=== PATIENT | male | born 1945 | race Caucasian/White ===

== ENCOUNTER → 2017-01-07 | Outpatient (CLI) | payer MEDICARE ==
--- NOTE | 2017-01-07 14:12 | RAD ---
Indication history of lung cancer. Follow-up. Axial noncontrast images were obtained through the chest and are compared to a study October 24, 2011. No acute or significant finding is seen in the upper abdomen. Gastric lap band is noted. There is some coronary artery calcification. Significant hilar or mediastinal adenopathy is not seen. There is a parenchymal opacity in the right upper lobe measuring approximately 8 mm in greatest dimension, image 20 series 2. This may reflect scar. Neoplastic disease is not entirely excluded. Follow-up imaging along the lines of the Fleischner criteria should be considered. There is an rectangular opacity in the right lower lobe measuring approximately 3.3 x 1 cm, image 42. This probably reflects some parenchymal scarring. Neoplastic disease is felt unlikely but cannot be entirely excluded. A focus of pneumonia accounting for the appearance is not excluded. Definite evidence of tumor recurrence or a definite acute finding in the chest is not seen. IMPRESSION: Parenchymal opacities in the right lung probably reflecting scar. Follow-up imaging, along the lines of the Fleischner criteria, should be considered. A definite acute finding is not seen. Definite evidence of tumor recurrence is not seen. PQRS Compliance Statement: One or more of the following individualized dose reduction techniques were utilized for this examination: 1. Automated exposure control 2. Adjustment of the mA and/or kV according to patient size 3. Use of iterative reconstruction technique
== END | disposition home or self-care (01) ==
LOC: CT 13:02
PROVIDERS: ATTEND Family Medicine
DX: C34.91 Malignant neoplasm of unspecified part of right bronchus or lung (principal)
CPT/HCPCS: 71250

== ENCOUNTER → 2017-10-18 | Outpatient (CLI) | payer MEDICARE ==
--- NOTE | 2017-10-18 18:10 | RAD ---
Limited abdomen ultrasound HISTORY: Bariatric laparoscopic gastric banding 2 years ago with pain at the port site at the left upper quadrant abdominal wall FINDINGS: Assessment of the left upper quadrant abdominal wall at the reported area of pain at the port site demonstrates shadowing from the port however there is no surrounding fluid, fluid collection, edema or mass documented. IMPRESSION: Negative exam. Electronically signed by: Hemanth Diallo MD (10/18/2017 6:06 PM) [facility]
== END | disposition home or self-care (01) ==
LOC: US 16:51
PROVIDERS: ATTEND Family Medicine
DX: R19.32 Left upper quadrant abdominal rigidity (principal)
CPT/HCPCS: 76705

== ENCOUNTER 2018-03-31 17:29 | Inpatient (IN) | payer MEDICARE ==
[~2018-03-31 17:29] MED LIST: DIAZ10TA PO; HEPARIN PF for SUB-Q USE 5,000 UNIT/0.5 ML VIAL. SQ SCH; INSU100I13 SQ; INSU100I17 SQ; LEVO500T59 PO; PRAV40TA2 PO; SILD100T PO
[2018-03-31 18:11] VITALS: BP 137/83
--- NOTE | 2018-03-31 18:13 | NUR ---
The patient, AUDRA RICHMOND, 72 y/o, M admitted by SHANIQUA QUINTERO MD, was given written information regarding hospital policies, unit procedures and contact persons. Patient admitted to room [address] Quintero's office and arrived at approx. 1745 via ambulation accompanied by . Valuables were checked and left in room with patient. Vital signs assessed and patient oriented to the room.
[2018-03-31] MEDS ORDERED: ZOLPIDEM 5 MG TABLET. PO PRN (18:15)
[2018-03-31] MEDS ORDERED: INSULIN GLARGINE 300 UNITS/3 ML INSULN.PEN. SQ SCH (21:00)
[2018-03-31] MEDS ORDERED: INSULIN ASPART SQ SCH (21:00)
[2018-03-31 21:19] LABS: BASO # 0.1 x10^3/uL (0.0-0.2); BASO % 1 % (0-3); EOS # 0.1 x10^3/uL (0.0-0.7); EOS % 2 % (0-3); HEMATOCRIT 36.7 % (39.0-53.0); LYMPH # 2.1 x10^3/uL (1.0-4.8); LYMPH % 26 % (24-48); MEAN CORPUSCULAR HEMOGLOBIN 31 pg (25-35); MEAN CORPUSCULAR HGB CONC 33 g/dL (31-37); MEAN CORPUSCULAR VOLUME 96 fL (79-100); MONO # 0.7 x10^3/uL (0.0-1.1); MONO % 9 % (0-9); NEUT % 63 % (31-73); PLATELET COUNT 139 x10^3/uL (140-400); RED BLOOD COUNT 3.83 x10^6/uL (4.30-5.70); RED CELL DISTRIBUTION WIDTH 14.4 % (11.5-14.5); WHITE BLOOD COUNT 8.1 x10^3/uL (4.0-11.0)
[2018-03-31 21:44] LABS: ALBUMIN 2.9 g/dL (3.4-5.0); ALBUMIN/GLOBULIN RATIO 0.7 (1.0-1.7); CALCIUM 8.8 mg/dL (8.5-10.1); GFR 73.7; POTASSIUM 3.5 mmol/L (3.5-5.1); TOTAL BILIRUBIN 6.4 mg/dL (0.2-1.0); TOTAL PROTEIN 7.1 g/dL (6.4-8.2)
[2018-03-31] MEDS: IV NORMAL SALINE 1,000ML 1,000 ML IV SCH (21:44)
[2018-03-31] MEDS ORDERED: METF500T9 PO (21:49)
[2018-03-31] MEDS ORDERED: DEXTROSE 50% 25 GM / 50ML DISP.SYRIN. IV PRN (22:00)
[2018-03-31] MEDS: diazePAM 5 MG TABLET PO SCH (22:24)
[2018-03-31 22:32] LABS: PLT ESTIMATE DECREASED (ADEQUATE)
[2018-03-31 23:17] LABS: BILIRUBIN,URINE LARGE (NEG); CLARITY,URINE HAZY; COLOR,URINE BROWN; GLUCOSE,URINE 250 mg/dL (NEG)
[2018-03-31 23:18] LABS: BACTERIA,URINE 0 /HPF (0-FEW); NITRITE,URINE NEG (NEG); RBC,URINE 0 /HPF (0-2); SQUAMOUS EPITHELIAL CELL,UR OCC /LPF; UROBILINOGEN,URINE 1 mg/dL (0.2 mg/dL); WBC,URINE OCC /HPF (0-4)
[2018-03-31 23:59] VITALS: BP 116/57
[2018-04-01] MEDS: IV NORMAL SALINE 1,000ML 1,000 ML IV SCH (05:02)
[2018-04-01 05:59] VITALS: BP 143/75
--- NOTE | 2018-04-01 06:35 | EKG ---
[address] [address] Test Date: 2018-04-01 Test Time: 05:05:19 Pat Name: AUDRA RICHMOND Department: Room: 123 A Gender: M Social Staff Worker: : 1945 Requested By: SHANIQUA QUINTERO Order Number: [id number] Reading MD: Measurements Intervals [place] Rate: 70 P: -30 GA: 246 QRS: 7 QRSD: 80 T: 20 QT: 394 QTc: 428 Interpretive Statements SINUS RHYTHM PROLONGED GA INTERVAL QRS(T) CONTOUR ABNORMALITY CONSIDER ANTEROSEPTAL MYOCARDIAL DAMAGE ABNORMAL ECG RI6.01 No previous ECG available for comparison
[2018-04-01 06:46] LABS: BASO # 0.1 x10^3/uL (0.0-0.2); BASO % 1 % (0-3); EOS # 0.1 x10^3/uL (0.0-0.7); EOS % 2 % (0-3); HEMATOCRIT 33.3 % (39.0-53.0); HEMOGLOBIN 11.3 g/dL (13.0-17.5); LYMPH # 1.6 x10^3/uL (1.0-4.8); LYMPH % 29 % (24-48); MEAN CORPUSCULAR HEMOGLOBIN 32 pg (25-35); MEAN CORPUSCULAR HGB CONC 34 g/dL (31-37); MEAN CORPUSCULAR VOLUME 93 fL (79-100); MONO # 0.6 x10^3/uL (0.0-1.1); MONO % 10 % (0-9); NEUT % 57 % (31-73); PLATELET COUNT 126 x10^3/uL (140-400); RED BLOOD COUNT 3.58 x10^6/uL (4.30-5.70); RED CELL DISTRIBUTION WIDTH 13.8 % (11.5-14.5); WHITE BLOOD COUNT 5.3 x10^3/uL (4.0-11.0)
[2018-04-01 07:17] LABS: ALBUMIN 2.5 g/dL (3.4-5.0); CALCIUM 8.3 mg/dL (8.5-10.1); CREATININE 0.9 mg/dL (0.7-1.3); DIRECT BILIRUBIN 5.1 mg/dL (0.0-0.2); GFR 83.2; POTASSIUM 3.3 mmol/L (3.5-5.1); TOTAL PROTEIN 6.7 g/dL (6.4-8.2)
[2018-04-01] MEDS ORDERED: INSULIN LISPRO 300 UNITS/3 ML INSULN.PEN. SQ SCH ×3 (08:00→17:00)
[2018-04-01] MEDS: diazePAM 5 MG TABLET PO SCH (08:15)
[2018-04-01] MEDS: INSULIN LISPRO 300 UNITS/3 ML INSULN.PEN. SQ SCH ×2 (08:20→12:26)
[2018-04-01] MEDS ORDERED: LEVOFLOXACIN PO SCH (09:00)
[2018-04-01] MEDS ORDERED: ELECTROLYTE (NON-ICU) PROTOCOL MC PRN (09:15)
[2018-04-01] MEDS ORDERED: POTASSIUM CHLORIDE 20 MEQ TABLET.ER. PO ONE (10:00)
--- NOTE | 2018-04-01 10:17 | RAD ---
Indication:DIFFUSE ABDOMINAL PAIN, history of LUNG CA TECHNIQUE: CT abdomen and pelvis without IV contrast with multiplanar reformats. COMPARISON: None FINDINGS: Limited evaluation of solid abdominal organs due to lack of IV contrast. Heart is normal in size. Stable 2 nodules in the right middle lobe, the largest measuring 7 mm in compared to previous study from 02/10/2018. Stable nodular opacity in the right lung base (series 2 image 16) measuring 5 mm. Liver is normal in morphology. Spleen is mildly enlarged measuring 14 cm with calcified granulomas. Status post cholecystectomy. Noncontrast appearance of the pancreas is within normal limits. Multiple punctate calcifications. Gastric lap band noted. No nephrolithiasis or hydronephrosis. No retroperitoneal or pelvic adenopathy. No bowel obstruction. Normal appendix. Urinary bladder demonstrates no radiopaque stones. Prostate and seminal vesicles show no mass lesion. No suspicious bony lesion. IMPRESSION: 1. Stable right lung base nodules are compatible previous study from 02/10/2018. Follow-up CT chest in 6 months recommended. 2. No acute findings in the abdomen or pelvis. 3. Punctate calcifications in the pancreas may suggest stigmata of chronic pancreatitis. Electronically signed by: Jose F Gibson DO (04/01/2018 10:14 AM) [facility]
[2018-04-01 11:31] VITALS: BP 123/60
--- NOTE | 2018-04-01 14:05 | NUR ---
Discharge Note: AUDRA RICHMOND [address] Discharge instructions and discharge home medications reviewed with PATIENT and a copy given. All questions have been answered and understanding verbalized. The following instructions and handouts were given: MEDICATIONS, FOLLOW UP INSTRUCTIONS, AND EDUCATIONAL HANDOUTS GIVEN. Discontinued lines and drains: PERIPHERAL IV DISCONTINUED WITH NO COMPLICATIONS. Patient discharged to HOME with SPOUSE via PRIVATE VEHICLE.
--- NOTE | 2018-04-01 14:09 | DS ---
DATE OF DISCHARGE: 04/01/2018 HOSPITAL COURSE: The patient is a 72-year-old male with history of lung cancer, came in through the office. He was jaundiced. The patient was feeling weak and somewhat lethargic as well as being extremely tired. As a result of this, the patient was admitted for observation for his elevated bilirubin. He had had labs done as an outpatient; however, began to have somewhat change in mental status and his elevated blood sugars were also complication. The patient was markedly dehydrated. He came in and received IV fluids. Basic labs, CT scan was unremarkable showing no signs of metastasis to the liver from his lung cancer. His liver enzymes were elevated. AST 75, ALT 120, alkaline phosphatase 348. His total bilirubin was 6.4 and direct bilirubin was 5.1. The patient also had a low albumin of 2.5. Potassium was low at 3.3. D-dimer was unremarkable and the urine of course showed large bilirubin. Images of the CT scan of the abdomen and pelvis demonstrated no parenchymal problems with the liver itself; however, there was stigmata of chronic pancreatitis, although his amylase and lipase was unremarkable. Chest x-ray was still pending at time of discharge as the patient wanted to be discharged home to be followed up with Dr. Gibson, noted GI specialist for further evaluation of his elevated liver enzymes. Other labs are still pending. Due to his hepatitis screen is still pending and other tests, the patient had been feeling very lethargic, although after fluid hydration and like, he has felt much better. IMPRESSION: Hyperbilirubinemia, encephalopathy with history of lung cancer, hypokalemia, [id number] protein malnutrition, abnormal liver enzymes, elevated and type 2 diabetes, poorly controlled; morbid obesity, BMI greater than 40. DISCHARGE INSTRUCTIONS: The patient will be discharged home, followed up. Regular diet, decreased activity, and minimize the use of any medications that might go through the liver until he sees Dr. Gibosn, noted trust and estates attorney. See EMRAD. Decreased activity. SHANIQUA QUINTERO MD DR: DOMINGA/anthony JOB#: [id number] / [id number]
[2018-04-01] MEDS ORDERED: HEPARIN PF for SUB-Q USE 5,000 UNIT/0.5 ML VIAL. SQ SCH (16:00)
--- NOTE | 2018-04-01 16:06 | RAD ---
EXAM: Chest, 2 views. HISTORY: Lung cancer. Shortness of breath. COMPARISON: CT dated 02/10/2018 FINDINGS: Frontal and lateral views of the chest are obtained. There is a 0.3 cm masslike opacity within the superior lateral right lower lobe. There is focal opacity within the left mid thorax likely due to pleural parenchymal scarring. There is an overlying left seventh rib defect and there is left hemithorax volume loss. There is no pleural effusion or pneumothorax. There is a gastric lap band. There are cholecystectomy clips. IMPRESSION: 1. 3.3 cm masslike opacity within the right superior right lower lobe. This is fairly stable compared to the prior CT, allowing for differences in imaging modality. This may be infectious, inflammatory or neoplastic. 2. Evidence of prior partial left lung resection with associated mid and lower thorax pleural parenchymal scarring and volume loss. 3. Note is made that a nodular opacity within the right lung apex on the prior CT is not well seen radiographically. Electronically signed by: Venita Martinez MD (04/01/2018 4:02 PM) [facility]
== END 2018-04-01 14:00 | disposition home or self-care (01) | DRG 441 ==
LOC: 1 SOUTH 17:29
PROVIDERS: ADMIT Family Medicine; ATTEND Family Medicine
PROC: 5A09357 Assistance with Respiratory Ventilation, Less than 24 Consecutive Hours, Continuous Positive Airway Pressure (ICD-10-PCS; principal; 2018-03-31)
DX: E80.6 Other disorders of bilirubin metabolism (principal); G93.40 Encephalopathy, unspecified; E44.0 Moderate protein-calorie malnutrition; Z68.41 Body mass index [BMI] 40.0-44.9, adult; K77 Liver disorders in diseases classified elsewhere; K86.1 Other chronic pancreatitis; Q44.6 Cystic disease of liver; E11.65 Type 2 diabetes mellitus with hyperglycemia; I25.10 Atherosclerotic heart disease of native coronary artery without angina pectoris; E66.01 Morbid (severe) obesity due to excess calories; E87.6 Hypokalemia; E86.0 Dehydration; Z85.118 Personal history of other malignant neoplasm of bronchus and lung; Z87.01 Personal history of pneumonia (recurrent); Z88.8 Allergy status to other drugs, medicaments and biological substances
CPT/HCPCS: 36415; 71046; 74176; 80048; 80053; 80076; 81001; 82150; 82947; 83690; 85025; 85379; 86705; 86709; 86803; 87340; 93005; 94640; J1815; J7030

== ENCOUNTER 2018-10-01 12:12 | Inpatient (IN) | payer MEDICARE ==
[~2018-10-01] VITALS: Ht 172.7 cm; Wt 96.8 kg
[~2018-10-01 12:12] MED LIST changes: -HEPARIN PF for SUB-Q USE 5,000 UNIT/0.5 ML VIAL. SQ SCH; +METF500T9 PO
[2018-10-01] MEDS ORDERED: DEXTROSE 50% 25 GM / 50ML DISP.SYRIN. IV ONE (12:30)
[2018-10-01 12:44] LABS: BASO # 0.1 x10^3/uL (0.0-0.2); BASO % 1 % (0-3); EOS # 0.1 x10^3/uL (0.0-0.7); EOS % 1 % (0-3); HEMOGLOBIN 9.7 g/dL (13.0-17.5); LYMPH # 1.2 x10^3/uL (1.0-4.8); LYMPH % 10 % (24-48); MEAN CORPUSCULAR HEMOGLOBIN 31 pg (25-35); MEAN CORPUSCULAR HGB CONC 32 g/dL (31-37); MEAN CORPUSCULAR VOLUME 97 fL (79-100); MONO % 8 % (0-9); NEUT # 9.8 x10^3uL (1.8-7.7); NEUT % 81 % (31-73); PLATELET COUNT 252 x10^3/uL (140-400); RED BLOOD COUNT 3.11 x10^6/uL (4.30-5.70); RED CELL DISTRIBUTION WIDTH 15.8 % (11.5-14.5); WHITE BLOOD COUNT 12.2 x10^3/uL (4.0-11.0)
[2018-10-01 13:07] LABS: ALBUMIN 2.2 g/dL (3.4-5.0); ALBUMIN/GLOBULIN RATIO 0.5 (1.0-1.7); CALCIUM 8.1 mg/dL (8.5-10.1); CREATININE 0.7 mg/dL (0.7-1.3); GFR 110.9; MAGNESIUM 1.7 mg/dL (1.8-2.4); TOTAL BILIRUBIN 0.3 mg/dL (0.2-1.0); TOTAL PROTEIN 6.6 g/dL (6.4-8.2)
[2018-10-01 13:08] LABS: POTASSIUM 2.6 mmol/L (3.5-5.1)
[2018-10-01] MEDS ORDERED: POTASSIUM CHLORIDE 20MEQ 100 ML IV ONE (13:15)
--- NOTE | 2018-10-01 13:21 | PHYS DOC ---
Past History Past Medical History: Cancer, Diabetes, Hypertension, Other Past Surgical History: Other Smoking: Non-smoker Alcohol Use: None Drug Use: None Adult General Chief Complaint Chief Complaint: HYPOGLYCEMIA HPI HPI Patient is a 73 year old male with history of Whipple procedure on September 19 and diabetes mellitus brought in by EMS because of hypoglycemia. Patient's states he was discharged from Hospital one week ago and had 1 episodes of hypoglycemia with blood sugar of 46 two nights ago and had adjustment of doses of insulin and metformin and increased his food intake. Patient states he was okay this morning at around 9:30 but later on had diaphoresis and very wide open eyes and confusion and she called 911 to report that he had blood sugar of 25 and had 1 mg glucagon IM. Patient was alert and oriented times arrival to ER with blood sugar of 61 and denies focal neuro deficit, chest pain, shortness of breath, fever and chills. Review of Systems Review of Systems Constitutional: Denies fever or chills [] Eyes: Denies change in visual acuity, redness, or eye pain [] HENT: Denies nasal congestion or sore throat [] Respiratory: Denies cough or shortness of breath [] Cardiovascular: No additional information not addressed in HPI [] GI: Denies abdominal pain, nausea, vomiting, bloody stools or diarrhea [] : Denies dysuria or hematuria [] Musculoskeletal: Denies back pain or joint pain [] Integument: Denies rash or skin lesions [] Neurologic: Denies headache, focal weakness or sensory changes [] Endocrine: Denies polyuria or polydipsia [] All other systems were reviewed and found to be within normal limits, except as documented in this note. Current Medications Current Medications Current Medications Medications (Trade) Dose Ordered Sig/Nabila Start Time Stop Time Status Last Admin Dose Admin Dextrose 12.5 gm 1X ONCE 10/01/18 12:30 10/01/18 12:34 DC 10/01/18 12:30 12.5 GM Allergies Allergies Allergies Coded Allergies Type Severity Reaction Last Updated Verified No Known Drug Allergies 02/10/18 No Physical Exam Physical Exam Constitutional: Well developed, well nourished, no acute distress, non-toxic appearance. [] HENT: Normocephalic, atraumatic, oropharynx moist, no oral exudates, nose normal. [] Eyes: PERRLA, EOMI, conjunctiva normal, no discharge. [] Neck: Normal range of motion, no tenderness, supple, no stridor. [] Cardiovascular:Heart rate regular rhythm, no murmur [] Lungs & Thorax: Bilateral breath sounds clear to auscultation [] Abdomen: upper abdominal clean surgical wound of Whipple surgery, bowel sounds normal, soft, no tenderness, no masses, no pulsatile masses. [] Skin: Warm, dry, no erythema, no rash. [] Back: No tenderness, no CVA tenderness. [] Extremities: No tenderness, no cyanosis, no clubbing, ROM intact, no edema. [] Neurologic: Alert and oriented X 3, normal motor function, normal sensory function, no focal deficits noted. [] Psychologic: Affect normal, judgement normal, mood normal. [] Current Patient Data Vital Signs Vital Signs Date Time Temp Pulse Resp B/P (MAP) Pulse Ox O2 Delivery O2 Flow Rate FiO2 10/01/18 12:37 71 18 97 Room Air Lab Results Laboratory Tests Test 10/01/18 12:27 10/01/18 13:00 White Blood Count 12.2 x10^3/uL (4.0-11.0) H Red Blood Count 3.11 x10^6/uL (4.30-5.70) L Hemoglobin 9.7 g/dL (13.0-17.5) L Hematocrit 30.0 % (39.0-53.0) L Mean Corpuscular Volume 97 fL (79-100) Mean Corpuscular Hemoglobin 31 pg (25-35) Mean Corpuscular Hemoglobin Concent 32 g/dL (31-37) Red Cell Distribution Width 15.8 % (11.5-14.5) H Platelet Count 252 x10^3/uL (140-400) Neutrophils (%) (Auto) 81 % (31-73) H Lymphocytes (%) (Auto) 10 % (24-48) L Monocytes (%) (Auto) 8 % (0-9) Eosinophils (%) (Auto) 1 % (0-3) Basophils (%) (Auto) 1 % (0-3) Neutrophils # (Auto) 9.8 x10^3uL (1.8-7.7) H Lymphocytes # (Auto) 1.2 x10^3/uL (1.0-4.8) Monocytes # (Auto) 1.0 x10^3/uL (0.0-1.1) Eosinophils # (Auto) 0.1 x10^3/uL (0.0-0.7) Basophils # (Auto) 0.1 x10^3/uL (0.0-0.2) Prothrombin Time 10.9 SEC (9.4-11.4) Prothrombin Time INR 1.1 (0.9-1.1) PTT 28 SEC (23-33) D-Dimer (Marcie) Pending Sodium Level 142 mmol/L (136-145) Potassium Level 2.6 mmol/L (3.5-5.1) *L Chloride Level 102 mmol/L (98-107) Carbon Dioxide Level 31 mmol/L (21-32) Anion Gap 9 (6-14) Blood Urea Nitrogen 14 mg/dL (8-26) Creatinine 0.7 mg/dL (0.7-1.3) Estimated GFR (Cockcroft-Gault) 110.9 BUN/Creatinine Ratio 20 (6-20) Glucose Level 141 mg/dL (70-99) H Lactic Acid Level 1.1 mmol/L (0.4-2.0) Calcium Level 8.1 mg/dL (8.5-10.1) L Magnesium Level 1.7 mg/dL (1.8-2.4) L Total Bilirubin 0.3 mg/dL (0.2-1.0) Aspartate Amino Transferase (AST) 28 U/L (15-37) Alanine Aminotransferase (ALT) 33 U/L (16-63) Alkaline Phosphatase 84 U/L (46-116) Creatine Kinase 28 U/L (39-308) L Troponin I Quantitative < 0.017 ng/mL (0-0.055) SV-Aws-Q-Type Natriuretic Peptide 369 pg/mL (0-124) H Total Protein 6.6 g/dL (6.4-8.2) Albumin 2.2 g/dL (3.4-5.0) L Albumin/Globulin Ratio 0.5 (1.0-1.7) L Lipase 32 U/L (73-393) L Glucose (Fingerstick) 146 mg/dL (70-99) H EKG EKG EKG interpreted by me. EKG at 12:30 T showed normal sinus rhythm at rate of 66, prolonged SC interval at 230, prolonged QT at 458, left greer axis, poor R-wave progress in anteroseptal leads, no acute ST and T-wave abnormalities,[] Radiology/Procedures Radiology/Procedures [] Course & Med Decision Making Course & Med Decision Making Pertinent Labs and Imaging studies reviewed. (See chart for details) Evaluation of patient in ER showed 73-year-old male patient with history of recent Whipple procedure and episode of hypoglycemia and blood sugar of 25 brought in by EMS. Patient had blood sugar of 61 at arrival to ER and treated with half of amp of D50 with increase of blood sugar to 141. Patient had potassium of 2.6 and magnesium of 1.7. Dr. Hammonds accepted admission at 1314. Patient and his informed about test result and plan of care and admission. Dragon Disclaimer Dragon Disclaimer This electronic medical record was generated, in whole or in part, using a voice recognition dictation system. Departure Departure: Impression: Primary Impression: Hypoglycemia Additional Impressions: Hypokalemia Altered level of consciousness Anemia Hypomagnesemia Disposition: 09 ADMITTED INPATIENT (@1315) Admitting Physician: Shaniqua Hammonds (accepted admission at 1314) Condition: IMPROVED Referrals: SHANIQUA HAMMONDS MD (PCP) Critical Care Time Critical care time was 60 minutes exclusive of procedures. Problem Qualifiers DYANA ESTEVES MD Oct 01, 2018 13:21
[2018-10-01] MEDS ORDERED: MAGNESIUM OXIDE 400 MG TABLET PO ONE (13:30)
[2018-10-01] MEDS ORDERED: METF500T9 PO (13:53)
[2018-10-01] MEDS ORDERED: TRAM50TA PO (13:53)
[2018-10-01] MEDS ORDERED: METO10TA81 PO (13:53)
[2018-10-01] MEDS ORDERED: ONDA8TAB9 PO (13:53)
[2018-10-01] MEDS ORDERED: SENN-37 PO (13:53)
[2018-10-01] MEDS ORDERED: METO25TA4 PO (13:53)
[2018-10-01] MEDS ORDERED: POLY17PO5 PO (13:53)
[2018-10-01] MEDS ORDERED: ACET160S PO (13:53)
[2018-10-01 14:35] LABS: BACTERIA,URINE 0 /HPF (0-FEW); BILIRUBIN,URINE NEG (NEG); CLARITY,URINE CLEAR; COLOR,URINE AMBER; GLUCOSE,URINE 250 mg/dL (NEG); NITRITE,URINE NEG (NEG); RBC,URINE 0 /HPF (0-2); SQUAMOUS EPITHELIAL CELL,UR OCC /LPF; UROBILINOGEN,URINE 8 mg/dL (0.2 mg/dL); WBC,URINE 0 /HPF (0-4)
--- NOTE | 2018-10-01 14:46 | EKG ---
[address] [address] Test Date: 2018-10-01 Test Time: 12:33:01 Pat Name: AUDRA RICHMOND Department: Room: 123 A Gender: M Telephone Order Clerk Room Service: : 1945 Requested By: DYANA ESTEVES Order Number: [id number] Reading MD: Billy Mcdaniel Measurements Intervals [place] Rate: 66 P: -5 UT: 230 QRS: -18 QRSD: 90 T: 52 QT: 458 QTc: 482 Interpretive Statements SINUS RHYTHM PROLONGED UT INTERVAL LEFTWARD AXIS QRS(T) CONTOUR ABNORMALITY CONSIDER ANTEROSEPTAL MYOCARDIAL DAMAGE PROLONGED QT Electronically Signed On 10-07-2018 10:07:10 [employer] by Billy Mcdaniel
[2018-10-01 14:55] VITALS: BP 143/80
[2018-10-01] MEDS ORDERED: ELECTROLYTE (NON-ICU) PROTOCOL MC PRN (18:45)
[2018-10-01] MEDS ORDERED: ACETAMINOPHEN 325 MG TABLET PO PRN (18:45)
[2018-10-01] MEDS ORDERED: DEXTROSE 50% 25 GM / 50ML DISP.SYRIN. IV PRN (19:15)
[2018-10-01 20:20] VITALS: BP 99/51
[2018-10-01] MEDS: diazePAM 5 MG TABLET PO SCH (20:22)
[2018-10-01] MEDS: SENNOSIDES/DOCUSATE 8.6/50MG TABLET. PO SCH (20:22)
[2018-10-01] MEDS: METOPROLOL TART IMMED RELEASE 25 MG TABLET PO SCH (20:22)
[2018-10-01] MEDS: METOCLOPRAMIDE 10 MG TABLET PO SCH (20:22)
[2018-10-01] MEDS: ONDANSETRON ODT 4 MG TAB.RAPDIS PO SCH (20:26)
[2018-10-02] MEDS: traMADol 50 MG TABLET PO PRN ×2 (00:37→09:56)
[2018-10-02 05:35] VITALS: BP 131/62
[2018-10-02] MEDS: ONDANSETRON ODT 4 MG TAB.RAPDIS PO SCH (06:00)
[2018-10-02] MEDS ORDERED: INSULIN LISPRO 300 UNITS/3 ML INSULN.PEN. SQ SCH (08:00)
[2018-10-02] MEDS ORDERED: POLYETHYLENE GLYCOL 3350 17 GM PACKET. PO SCH (09:00)
[2018-10-02] MEDS: METOCLOPRAMIDE 10 MG TABLET PO SCH (09:04)
[2018-10-02] MEDS: METOPROLOL TART IMMED RELEASE 25 MG TABLET PO SCH (09:05)
[2018-10-02] MEDS: diazePAM 5 MG TABLET PO SCH (09:06)
[2018-10-02 09:29] LABS: CALCIUM 8.2 mg/dL (8.5-10.1); CREATININE 0.8 mg/dL (0.7-1.3); POTASSIUM 3.2 mmol/L (3.5-5.1)
[2018-10-02] MEDS ORDERED: POTA20TA4 PO (09:33)
--- NOTE | 2018-10-02 09:35 | DISCH ---
DISCHARGE INSTRUCTIONS-DC Condition on Discharge Condition on Discharge: Stable Checks after Discharge Checks after discharge: Check blood sugar, ac/hs Additional Comment: use sliding scale as given to you by the nurses SHANIQUA QUINTERO MD Oct 02, 2018 09:35
[2018-10-02] MEDS: SENNOSIDES/DOCUSATE 8.6/50MG TABLET. PO SCH (09:57)
[2018-10-02] MEDS ORDERED: POTASSIUM CHLORIDE 20 MEQ TABLET.ER. PO SCH (10:00)
[2018-10-02 10:31] VITALS: BP 124/78
--- NOTE | 2018-10-02 18:46 | HP ---
ADMIT DATE: 10/01/2018 HISTORY OF PRESENT ILLNESS: A 73-year-old male, recent Whipple procedure on 09/19/2018, possible pancreatic cancer, diabetes mellitus, EMS brought him in through the ER for hypoglycemia. Apparently, he has been taking insulin and not eating very much because of his procedure. His sugar has gone down and as low as 25. He was given glucagon to get his sugar back up. He was admitted for observation and make sure the sugars stayed up. The patient had as noted been taking his oral hypoglycemics as well as insulin and not eating. PAST MEDICAL HISTORY: As indicated. The patient has a history of lung cancer. He has had a tonsillectomy, adenoidectomy, hearing problems, hypercholesterolemia, right lower lung active pneumonia, lobectomy. The patient has had sleep apnea, uses CPAP, pancreatic cancer, Whipple on 09/19/2018 at , cholecystectomy, lap band procedure in 2007, still in place, obesity, diabetes and anxiety. He has had chemotherapy in 07/2018 at [place], influenza, pneumococcal vaccinations are up-to-date; kidney cancer and multiple myeloma family history thereof, adverse reaction to Lipitor, Soma and Crestor. HOME MEDICATIONS: That he was taking or probably should not have been taking include tramadol 50 mg a day, metoprolol 25, diazepam, potassium chloride, Reglan 10 mg a day. He had been taking NovoLog FlexPen as well as Lantus and metformin that he has also been taking Viagra 1 p.r.n. and docusate sodium. SOCIAL HISTORY: The patient is a former smoker, otherwise denies any alcohol presently, lives at home, he is a full code. REVIEW OF SYSTEMS: The patient just general weakness, fatigue, diaphoresis. Denies chest pain. Very minimal abdominal discomfort secondary to his surgery. PHYSICAL EXAMINATION: GENERAL: A pleasant white male, looking stated age. VITAL SIGNS: Blood pressure 120/60, respirations 16, pulse 67, afebrile, 99% oxygen saturation, weight 213. HEENT: Head: Atraumatic, normocephalic. Eyes: PERRLA without jaundice. The mouth and throat were normal. NECK: Supple without JVD, carotid bruits or thyromegaly. LUNGS: Diminished throughout, but clear. CARDIOVASCULAR: Regular sinus rhythm, S1, S2, without murmur, rub, thrill, or extra heart sounds. ABDOMEN: Soft, nontender, no rebounding or guarding. Positive bowel sounds, no hepatosplenomegaly was noted. The patient's surgical wounds seemed to be healing up quite well, slightly distended, slight tenderness, but no rebounding or guarding noted. EXTREMITIES: No clubbing, cyanosis, nr edema. NEUROLOGIC: The patient was alert and oriented x 3. SHANIQUA QUINTERO MD DR: DOMINGA/anthony JOB#: [id number] / [id number]
== END 2018-10-02 11:10 | disposition home health service (06) | DRG 638 ==
LOC: ER 12:12 → 1 SOUTH 13:20
PROVIDERS: ADMIT Family Medicine; ATTEND Family Medicine
PROC: 5A09357 Assistance with Respiratory Ventilation, Less than 24 Consecutive Hours, Continuous Positive Airway Pressure (ICD-10-PCS; principal; 2018-10-01)
DX: E11.649 Type 2 diabetes mellitus with hypoglycemia without coma (principal); E44.0 Moderate protein-calorie malnutrition; G92 Toxic encephalopathy; D64.9 Anemia, unspecified; E78.00 Pure hypercholesterolemia, unspecified; E83.42 Hypomagnesemia; E87.6 Hypokalemia; E66.9 Obesity, unspecified; F41.9 Anxiety disorder, unspecified; G47.30 Sleep apnea, unspecified; I10 Essential (primary) hypertension; Z79.899 Other long term (current) drug therapy; Z85.07 Personal history of malignant neoplasm of pancreas; Z85.118 Personal history of other malignant neoplasm of bronchus and lung; Z85.528 Personal history of other malignant neoplasm of kidney; Z87.891 Personal history of nicotine dependence; Z92.21 Personal history of antineoplastic chemotherapy; Z90.411 Acquired partial absence of pancreas; Z87.01 Personal history of pneumonia (recurrent); Z68.32 Body mass index [BMI] 32.0-32.9, adult; Z90.49 Acquired absence of other specified parts of digestive tract
CPT/HCPCS: 36415; 80048; 80053; 81001; 82550; 82947; 83605; 83690; 83735; 83880; 84484; 85025; 85379; 85610; 85730; 87040; 93005; 96365; 96375; J1815; J3480; J8597; 99291-25

== ENCOUNTER 2018-10-23 08:30 | Inpatient (IN) | payer MEDICARE ==
[~2018-10-23] VITALS: Ht 172.7 cm; Wt 87.2 kg
[~2018-10-23 08:30] MED LIST changes: +ACET160S PO; +METO10TA81 PO; +METO25TA4 PO; +ONDA8TAB9 PO; +POLY17PO5 PO; +POTA20TA4 PO; +SENN-37 PO; +TRAM50TA PO
[2018-10-23 08:37] VITALS: BP 113/73
[2018-10-23] MEDS ORDERED: traMADol 50 MG TABLET PO PRN (09:15)
[2018-10-23] MEDS ORDERED: ACETAMINOPHEN 325 MG TABLET PO PRN (09:15)
[2018-10-23] MEDS ORDERED: METOPROLOL TART IMMED RELEASE 25 MG TABLET PO SCH (09:30)
[2018-10-23] MEDS ORDERED: diazePAM 5 MG TABLET PO SCH ×2 (09:30→21:00)
[2018-10-23] MEDS ORDERED: ONDANSETRON ODT 4 MG TAB.RAPDIS PO PRN ×2 (09:30→09:45)
[2018-10-23] MEDS ORDERED: METOCLOPRAMIDE 10 MG TABLET PO SCH (09:30)
[2018-10-23] MEDS ORDERED: AA 3%/ELECTROLYTE-TPN SOLN/GLY 1,000 ML IV SCH (09:30)
--- NOTE | 2018-10-23 09:31 | RAD ---
EXAM: Chest, 2 views. HISTORY: Shortness of breath. COMPARISON: 03/31/2018 FINDINGS: 2 views of the chest are obtained. There is stable nodular opacity overlying the superior segment of the right lower lobe. There is new linear right infrahilar opacity. There is stable left perihilar and infrahilar opacity. No pleural effusion or pneumothorax is seen. The heart is normal in size. There are surgical clips overlying the left hilum. There is a gastric lap band within the upper abdomen. There are surgical clips within the upper abdomen. There is a port catheter with the tip in the superior cavoatrial junction. IMPRESSION: 1. Stable nodular opacity within the superior segment of the right lower lobe. This is better characterized on the CT dated 02/10/2018. There is a small nodular opacity within the right lung apex on the prior CT is not well seen radiographically. 2. Stable postoperative changes involving the left lung with associated left perihilar and infrahilar opacity likely due to pleural parenchymal scarring. The possibility of superimposed infiltrate is not excluded. 3. New linear right infrahilar atelectasis or infiltrate. Electronically signed by: Venita Martinez MD (10/23/2018 9:27 AM) [place] [id number]
[2018-10-23] MEDS ORDERED: POTA20TA4 PO (10:04)
[2018-10-23 10:09] LABS: ALBUMIN 2.7 g/dL (3.4-5.0); ALBUMIN/GLOBULIN RATIO 0.5 (1.0-1.7); CALCIUM 8.8 mg/dL (8.5-10.1); CREATININE 0.9 mg/dL (0.7-1.3); GFR 82.9; POTASSIUM 3.3 mmol/L (3.5-5.1); TOTAL BILIRUBIN 0.2 mg/dL (0.2-1.0)
[2018-10-23 10:10] LABS: AMYLASE 20 U/L (25-115); LIPASE 50 U/L (73-393)
[2018-10-23] MEDS: IV NORMAL SALINE 1,000ML 1,000 ML IV SCH ×3 (10:11→20:35)
[2018-10-23] MEDS ORDERED: POTASSIUM CHLORIDE 20 MEQ TABLET.ER. PO SCH ×2 (10:30→13:00)
--- NOTE | 2018-10-23 10:48 | RAD ---
EXAM: CT Abdomen and Pelvis without IV contrast CLINICAL HISTORY: ABDOMINAL PAIN. HX OF PANCREATIC CANCER WITH WHIPPLE PROCEDURE. LUNG CANCER. NO CONTRAST PER ORDER. COMPARISON: 03/31/2018 TECHNIQUE: Helical CT of the abdomen and pelvis without intravenous contrast. Axial, coronal and sagittal reformatted images were generated. PQRS compliance statement - One or more of the following individualized dose reduction techniques were utilized for this study: 1. Automated exposure control 2. Adjustment of the mA and/or kV according to patient size 3. Use of iterative reconstruction technique FINDINGS: Lack of intravenous contrast limits evaluation of solid organs, vasculature, and lymph nodes. Lower chest: Linear opacities in the bilateral lower lobes likely scarring/atelectasis. No lobar consolidation. Coronary artery calcifications are seen. Abdomen and Pelvis: No focal liver lesion. Calcified granuloma are seen within the spleen. Changes of Whipple procedure are seen. Cholecystectomy is noted. Heterogeneous collection of gas and fluid is seen in the operative bed at the site of the pancreatic head resection, measuring approximately 5.4 x 1.9 cm. This is seen extending laterally along the gallbladder fossa. This may represent postoperative change although developing abscess is not excluded. Left lower pole renal cystic lesion is seen. Right lower pole renal cystic lesion is seen. No hydronephrosis. Adrenal glands are normal. No small or large bowel dilatation. Moderate colonic stool content is seen. A linear radiopaque density is seen within a distal small bowel loop. This is likely intraluminal and looks very similar to a biliary/pancreatic stent and may represent a distally displaced/dislodged stent. Appendix is normal. Aortic calcifications are seen. Changes of gastric lap band are noted. Several prominent right upper quadrant lymph nodes are seen, possibly reactive. Infiltration is seen into the retroperitoneum just deep to the SMA, possibly postsurgical. No abdominal or pelvic ascites. Bones: Osseous structures are grossly stable with degenerative changes, most prominent in the lower thoracic spine. IMPRESSION: 1. Changes of Whipple procedure are seen with suspected gas and fluid collection within the operative bed of the pancreatic head resection. Although this may be related to postoperative change, developing abscess/infectious process may have similar appearance. 2. A linear density is seen within the distal small bowel, nonspecific but is very similar in appearance to a biliary or pancreatic stent. 3. Infiltration of the retroperitoneum between the aorta and SMA, possibly postsurgical. Recommend close attention on follow-up. Electronically signed by: Ras Rinaldi MD (10/23/2018 10:44 AM) [facility]
[2018-10-23] MEDS: POTASSIUM CHLORIDE 20 MEQ TABLET.ER. PO SCH (10:54)
[2018-10-23] MEDS: METOPROLOL SUCC 24HR ER 25 MG TAB.ER.24H. PO SCH (10:54)
[2018-10-23 10:56] VITALS: BP 122/72
--- NOTE | 2018-10-23 11:18 | HP ---
ADMIT DATE: 10/23/2018 HISTORY OF PRESENT ILLNESS: This 73-year-old gentleman came in not able to eat or drink here for the last couple of days. The patient has undergone a Whipple procedure back in August. He had pancreatic cancer as well as he has had a lobectomy for left lower lobe cancer. He has also had histories of multiple other things, but in any case, he is not able to eat or drink and as reported had been undergoing chemotherapy down at [facility]. The patient otherwise seemed to be resting fairly comfortably and making fairly good progress overall, but unable to eat or drink, general lethargy. He is admitted for IV fluids hydration, nutritional supplementation, and further evaluation of the progression possibly of his illness. Chest x-ray shows possible infiltrative process. The patient admitted for IV hydration, nutrition, and antibiotic therapy. PAST MEDICAL HISTORY: Tonsillectomy, adenoidectomy, hearing problems, hypercholesterolemia, pneumonia, lobectomy, left lower lobe lung cancer, pancreatic cancer, Whipple on 09/19/2018 down at , cholecystectomy, lap band in 2007, still in place, obesity, GERD, some depression. Pneumococcal flu vaccines up-to-date. Diabetes, history of hypoglycemia as well as type 2 diabetes. FAMILY HISTORY: Positive for kidney cancer in a brother and multiple myeloma in father. ALLERGIES: LIPITOR, SOMA, and CRESTOR. MEDICATIONS: Include that of metoprolol 25 mg b.i.d., tramadol 50 mg, Tylenol, diazepam 10 mg b.i.d., Klor-Con, Zofran, and Reglan. SOCIAL HISTORY: The patient used to be a smoker; however, he has not smoked for several years now. Denies alcohol or drug use. Lives at home. Full code. REVIEW OF SYSTEMS: Generalized weakness, fatigue, diaphoresis. Denies chest pain, shortness of breath. Diffuse abdominal discomfort. Wound healing fairly well from his Whipple procedure without any signs of infection. No problem with bowels or bladder. PHYSICAL EXAMINATION: GENERAL: White male in moderate distress, looks somewhat pale. VITAL SIGNS: Blood pressure 113/73, respiratory rate 20, pulse 97, afebrile. HEENT: The patient's head was atraumatic, normocephalic. Eyes: PERRLA without jaundice. Mouth and throat were normal. NECK: Supple without thyromegaly. LUNGS: Diminished throughout, poor movement of air, particularly in the base, especially in the left lower lobe. CARDIOVASCULAR: Regular sinus rhythm. ABDOMEN: Soft, protuberant, wound healing quite well. There is diffuse tenderness in the abdominal area. EXTREMITIES: No clubbing, cyanosis, nor edema. NEUROLOGIC: The patient was alert and oriented x 3. Speech is fluent, spontaneous, appropriate. Cranial nerves 2-12 grossly intact. LABORATORY DATA: Labs are still pending. They were just drawn. We will make further evaluation on him as indicated. Otherwise, he will receive IV fluids, IV antibiotic therapy. IMPRESSION: Pneumonia, dehydration, failure to thrive, history of pancreatic cancer, history of lung cancer, post-Whipple within the last 2 months. SHANIQUA QUINTERO MD DR: DOMINGA/anthony JOB#: [id number] / [id number]
[2018-10-23 11:54] LABS: BASO % 0 % (0-3); EOS % 0 % (0-3); HEMATOCRIT 31.1 % (39.0-53.0); HEMOGLOBIN 10.3 g/dL (13.0-17.5); LYMPH # 2.4 x10^3/uL (1.0-4.8); LYMPH % 22 % (24-48); MEAN CORPUSCULAR HEMOGLOBIN 30 pg (25-35); MEAN CORPUSCULAR HGB CONC 33 g/dL (31-37); MEAN CORPUSCULAR VOLUME 91 fL (79-100); MONO # 0.9 x10^3/uL (0.0-1.1); MONO % 8 % (0-9); NEUT # 7.5 x10^3uL (1.8-7.7); NEUT % 69 % (31-73); PLATELET COUNT 178 x10^3/uL (140-400); RED BLOOD COUNT 3.41 x10^6/uL (4.30-5.70); RED CELL DISTRIBUTION WIDTH 16.7 % (11.5-14.5); WHITE BLOOD COUNT 10.9 x10^3/uL (4.0-11.0)
[2018-10-23] MEDS ORDERED: INSU100V31 SQ (13:40)
[2018-10-23] MEDS ORDERED: DEXTROSE 50% 25 GM / 50ML DISP.SYRIN. IV PRN (14:15)
[2018-10-23] MEDS: HEPARIN for SUB-Q USE 5,000 UNIT/ML VIAL. SQ SCH ×2 (14:26→20:35)
[2018-10-23 16:03] VITALS: BP 115/71
[2018-10-23] MEDS: INSULIN LISPRO 300 UNITS/3 ML INSULN.PEN. SQ SCH ×2 (18:01)
--- NOTE | 2018-10-23 18:48 | PDOC ---
Exam Note: Howard Note: Please also refer to the separate dictated note~for this date of service dictated separately.~Patient seen individually. Discussed the patient with Nursing staff reviewed the chart.~Reviewed interim history and current functioning. Reviewed vital signs,~Labs/ Radiology~and current medications noted below. Continue current treatment with the changes noted in the dictated addendum note Assessment: Vital Signs: Vital Signs Date Time Temp Pulse Resp B/P (MAP) Pulse Ox O2 Delivery O2 Flow Rate FiO2 10/23/18 16:03 98.4 84 18 115/71 (86) 97 Room Air Labs: Laboratory Tests Test 10/23/18 09:33 10/23/18 10:05 10/23/18 11:16 10/23/18 17:04 White Blood Count 10.9 x10^3/uL (4.0-11.0) Red Blood Count 3.41 x10^6/uL (4.30-5.70) L Hemoglobin 10.3 g/dL (13.0-17.5) L Hematocrit 31.1 % (39.0-53.0) L Mean Corpuscular Volume 91 fL (79-100) Mean Corpuscular Hemoglobin 30 pg (25-35) Mean Corpuscular Hemoglobin Concent 33 g/dL (31-37) Red Cell Distribution Width 16.7 % (11.5-14.5) H Platelet Count 178 x10^3/uL (140-400) Neutrophils (%) (Auto) 69 % (31-73) Lymphocytes (%) (Auto) 22 % (24-48) L Monocytes (%) (Auto) 8 % (0-9) Eosinophils (%) (Auto) 0 % (0-3) Basophils (%) (Auto) 0 % (0-3) Neutrophils # (Auto) 7.5 x10^3uL (1.8-7.7) Lymphocytes # (Auto) 2.4 x10^3/uL (1.0-4.8) Monocytes # (Auto) 0.9 x10^3/uL (0.0-1.1) Eosinophils # (Auto) 0.0 x10^3/uL (0.0-0.7) Basophils # (Auto) 0.0 x10^3/uL (0.0-0.2) Sodium Level 140 mmol/L (136-145) Potassium Level 3.3 mmol/L (3.5-5.1) L Chloride Level 102 mmol/L (98-107) Carbon Dioxide Level 26 mmol/L (21-32) Anion Gap 12 (6-14) Blood Urea Nitrogen 17 mg/dL (8-26) Creatinine 0.9 mg/dL (0.7-1.3) Estimated GFR (Cockcroft-Gault) 82.9 BUN/Creatinine Ratio 19 (6-20) Glucose Level 208 mg/dL (70-99) H Calcium Level 8.8 mg/dL (8.5-10.1) Total Bilirubin 0.2 mg/dL (0.2-1.0) Aspartate Amino Transferase (AST) 30 U/L (15-37) Alanine Aminotransferase (ALT) 30 U/L (16-63) Alkaline Phosphatase 74 U/L (46-116) Total Protein 8.0 g/dL (6.4-8.2) Albumin 2.7 g/dL (3.4-5.0) L Albumin/Globulin Ratio 0.5 (1.0-1.7) L Amylase Level 20 U/L (25-115) L Lipase 50 U/L (73-393) L Lactic Acid Level 1.7 mmol/L (0.4-2.0) Glucose (Fingerstick) 146 mg/dL (70-99) H 206 mg/dL (70-99) H Current Medications: Meds: Current Medications Sodium Chloride 1,000 ml @ 150 mls/hr Q6H40M IV Last administered on 10/23/18at 15:40; Start 10/23/18 at 09:00 Metoprolol Tartrate (Lopressor) 12.5 mg BID PO ; Start 10/23/18 at 09:30; Stop at 10:27; Status DC Potassium Chloride (Klor-Con) 20 meq [id number] PO ; Start 10/23/18 at 13:00; Stop at 13:00; Status DC Tramadol HCl (Ultram) 50 mg PRN Q4HRS PRN PO PAIN; Start 10/23/18 at 09:15 Acetaminophen (Tylenol) 325 mg PRN Q6HRS PRN PO PAIN; Start 10/23/18 at 09:15 Diazepam (Valium) 10 mg BID PO ; Start 10/23/18 at 09:30; Stop 10/23/18 at 10:27; Status DC Metoclopramide HCl (Reglan) 10 mg QID PO ; Start 10/23/18 at 09:30; Stop 10/23/18 at 10:27; Status DC Ondansetron HCl (Zofran Odt) 4 mg PRN Q8HRS PRN PO NAUSEA/VOMITING; Start at 09:30; Stop 10/23/18 at 09:34; Status DC Amino Acids/ Glycerin/ Electrolytes 1,000 ml @ 80 mls/hr [id number] IV ; Start 10/23/18 at 09:30 Heparin Sodium (Porcine) (Heparin Sodium) 5,000 unit Q8HRS SQ Last administered on 10/23/18at 14:26; Start 10/23/18 at 14:00 Ondansetron HCl (Zofran Odt) 8 mg PRN Q8HRS PRN PO NAUSEA/VOMITING; Start at 09:45 Ceftriaxone Sodium 1 gm/ Sodium Chloride 50 ml @ 100 mls/hr DAILY IV Last administered on 10/23/18at 10:55; Start 10/23/18 at 10:00 Potassium Chloride (Klor-Con) 20 meq [id number] PO ; Start 10/23/18 at 10:30; Stop at 10:30; Status DC Diazepam (Valium) 10 mg HS PO ; Start 10/23/18 at 21:00 Metoprolol Succinate (Toprol Xl) 12.5 mg DAILY PO Last administered on at 10:54; Start 10/23/18 at 10:30 Potassium Chloride (Klor-Con) 20 meq DAILY PO Last administered on 10/23/18at 10: 54; Start 10/23/18 at 10:30 Insulin Human Lispro (HumaLOG) 0-7 UNITS TIDWMEALS SQ Last administered on at 18:01; Start 10/23/18 at 17:00 Dextrose 12.5 gm PRN Q15MIN PRN IV SEE COMMENTS; Start 10/23/18 at 14:15 Insulin Human Lispro (HumaLOG) 24 units TIDWMEALS SQ Last administered on at 18:01; Start 10/23/18 at 17:00 Active Scripts Active Klor-Con M20 (Potassium Chloride) 20 Meq Tab.er.prt 1 Tab PO [id number] Reported Novolog (Insulin Aspart) 100 Unit/1 Ml Vial 24 Unit SQ TIDWMEALS Klor-Con M20 (Potassium Chloride) 20 Meq Tab.er.prt 1 Tab PO DAILY Tramadol Hcl (Tramadol HCl) 50 Mg Tablet 50 Mg PO PRN Q4HRS PRN Zofran (Ondansetron Hcl) 8 Mg Tablet 1 Tab PO Q8HRS PRN Metoprolol Tartrate 25 Mg Tablet 0.5 Tab PO DAILY Acetaminophen 160 Mg/5 Ml Solution 325 Mg PO PRN Q6HRS PRN Valium (Diazepam) 10 Mg Tablet 10 Mg PO HS LAST DOSE GIVEN: DATE: TIME: NEXT DOSE DUE: DATE: TIME: I have reviewed the current psychotropics carefully including drug interactions. Risk benefit ratio favors no change other than as noted in my dictated progress note. Diagnosis: Problems: (1) Anxiety disorder (2) Major depressive disorder, recurrent episode RADHA FRANKLIN MD Oct 23, 2018 18:48
[2018-10-23 19:05] VITALS: BP 120/74
[2018-10-23 23:31] VITALS: BP 108/65
[2018-10-24] MEDS: IV NORMAL SALINE 1,000ML 1,000 ML IV SCH (02:39)
[2018-10-24 05:35] VITALS: BP 134/72
[2018-10-24] MEDS: HEPARIN for SUB-Q USE 5,000 UNIT/ML VIAL. SQ SCH (05:35)
[2018-10-24 06:41] LABS: BASO % 0 % (0-3); EOS % 0 % (0-3); HEMATOCRIT 28.3 % (39.0-53.0); HEMOGLOBIN 9.4 g/dL (13.0-17.5); LYMPH # 2.4 x10^3/uL (1.0-4.8); LYMPH % 26 % (24-48); MEAN CORPUSCULAR HEMOGLOBIN 30 pg (25-35); MEAN CORPUSCULAR HGB CONC 33 g/dL (31-37); MEAN CORPUSCULAR VOLUME 92 fL (79-100); MONO # 0.9 x10^3/uL (0.0-1.1); MONO % 10 % (0-9); NEUT # 5.8 x10^3uL (1.8-7.7); NEUT % 63 % (31-73); PLATELET COUNT 138 x10^3/uL (140-400); RED BLOOD COUNT 3.08 x10^6/uL (4.30-5.70); RED CELL DISTRIBUTION WIDTH 16.4 % (11.5-14.5); WHITE BLOOD COUNT 9.2 x10^3/uL (4.0-11.0)
[2018-10-24 06:43] LABS: CALCIUM 8.3 mg/dL (8.5-10.1); CREATININE 0.7 mg/dL (0.7-1.3); GFR 110.9
[2018-10-24] MEDS: INSULIN LISPRO 300 UNITS/3 ML INSULN.PEN. SQ SCH ×2 (08:23→08:24)
[2018-10-24] MEDS: POTASSIUM CHLORIDE 20 MEQ TABLET.ER. PO SCH (08:24)
[2018-10-24 08:26] VITALS: BP 134/72
[2018-10-24] MEDS: METOPROLOL SUCC 24HR ER 25 MG TAB.ER.24H. PO SCH (08:26)
[2018-10-24] MEDS ORDERED: INSU100I11 SQ (09:16)
[2018-10-24] MEDS ORDERED: NORT10CA PO (09:16)
[2018-10-24] MEDS ORDERED: BUPR150T11 PO (09:16)
[2018-10-24] MEDS ORDERED: LEVO500T59 PO (09:16)
[2018-10-24] MEDS ORDERED: POTA20TA4 PO (09:19)
[2018-10-24] MEDS ORDERED: levoFLOXacin 500 MG TABLET PO SCH (09:30)
[2018-10-24] MEDS ORDERED: buPROPion SR 150 MG TABLET.SA PO SCH (09:30)
[2018-10-24] MEDS ORDERED: LACTOBACILLUS RHAMNOSUS GG 1 CAPSULE. PO SCH (09:30)
--- NOTE | 2018-10-24 10:51 | DS ---
DATE OF DISCHARGE: 10/24/2018 HOSPITAL COURSE: The patient is a 73-year-old male with multiple malignancies including lung cancer and pancreatic cancer. The patient had go on a Whipple procedure in 08/2018. He has been feeling increasingly weak as well as possible pneumonia, dehydration, and failure to thrive. The patient was placed on IV antibiotic therapy and made excellent progress during his first 24 hours. There was no left shift. White count was normal. Blood sugars were slightly elevated. The patient made good progress during the rest of his hospitalization and demanded to be discharged. He was discharged home. He will be followed up as an outpatient. He is also describing severe depression, placed on buspirone as he lies around in bed a lot and some nortriptyline at bedtime to help activate him. Otherwise, his blood pressure 134/72, pulse 100, afebrile. The patient's imaging was inconclusive, but may have showed an infiltrate. CT scan showed the post-Whipple procedure, but the patient was not having any abdominal pain whatsoever and palpation of his abdomen was soft and nontender wound. Surgical wound healing up very nicely. Overall, the patient did very well. We had him on some procalamine to give him additional nutritional supplement. He has been seen by Dr. Thurston for his depression. FINAL DIAGNOSES: Course would be that of possible community-acquired pneumonia, dehydration, failure to thrive, history of pancreatic cancer, history of lung cancer, post-Whipple within the last 2 months, depression, type 2 diabetes, [id number] protein malnutrition, and hypokalemia. The patient continued to be monitored as an outpatient. Continue on oral antibiotics. He will follow up with his surgeons at here in another couple of weeks to be on a diabetic diet, decreased activity, more mobilization. Continue PT, OT as an outpatient. Follow up with Dr. Thurston. SHANIQUA QUINTERO MD DR: DOMINGA/anthony JOB#: [id number] / [id number]
[2018-10-24] MEDS ORDERED: NORTRIPTYLINE 10 MG CAPSULE PO SCH (21:00)
--- NOTE | 2018-10-25 12:14 | CONS ---
DATE OF CONSULTATION: 10/23/2018 PSYCHIATRIC CONSULTATION This is a late entry date of service 10/23/2017, covers elements not covered in my initial note. SUMMARY OF PROGRESS: I met with the patient in the evening and also met with his and nursing staff, reviewed the chart. IDENTIFYING DATA: The patient is a 73-year-old male seen in bed [address] [facility], for a psychiatric consult requested by Dr. Hammonds on account of being "very depressed." Apparently, the patient is reported that he has considered suicide, but denies active plans or any past attempts. The patient's states that he has not been eating and does not want to do anything. This is all within the context of his pancreatic cancer, recent Whipple's procedure and having being told that his prognosis is for 18 months. The patient, however, denies he was told this and said he was told that his cancer was resolved. On close questioning, he denies active suicidal ideation, but admits to being lethargic. Apparently, the patient has also had a lobectomy of the left lower lobe cancer. He has been undergoing chemotherapy at [facility], and he was admitted for dehydration for IV fluids, nutritional supplements. Chest x-ray showed possible infiltration. PAST MEDICAL HISTORY: In addition to above, positive for tonsillectomy and adenoidectomy, hearing problems, hypercholesterolemia, pneumonia, lobectomy, left lower lobe lung cancer, pancreatic cancer. Whipple's done on 09/19/2018 at . History of cholecystectomy, lap band in 2007, still in place. Past history of obesity, GERD, depression. History of diabetes, hypoglycemia. FAMILY HISTORY: Positive for kidney cancer in a brother and multiple myeloma in father. ALLERGIES: LIPITOR, SOMA, CRESTOR. CURRENT PSYCHOTROPICS: MRAD was reviewed and currently on Wellbutrin-SR 150 mg b.i.d., Valium 10 mg at bedtime, and nortriptyline 10 mg at bedtime. MENTAL STATUS EXAM: The patient was seen individually in his room and also met with his . He remains withdrawn, depressed, was quite fixated on the fact that he was not informed about 18-month prognosis and states that some misunderstanding. The is aware of this and said he will call to clarify. Speech has some latency, coherent. Abstraction fair, computation impaired, language function intact. Mood and affect depressed. Again, no active suicidal ideation. LABORATORY DATA: Reviewed. IMPRESSION: From a psychiatric standpoint, major depressive disorder versus adjustment disorder with depressed mood; anxiety disorder, unspecified. Rest as above. RECOMMENDATIONS: From a psychiatric standpoint, the patient would benefit from the addition of Remeron 7.5 mg p.o. at bedtime in place of the Pamelor 10 mg p.o. at bedtime. Additionally, the Wellbutrin could reduce his appetite further, could be dropped down to once a day and Cymbalta added 30 mg a day increasing in about a week 10 days to 60 mg a day. At some point, the Valium should hopefully be reduced since it could be causing some more apathy, amotivation, withdrawal. The Remeron should help with the insomnia, which is partly why Valium was being used. I will leave all these as recommendations for Dr. Hammonds to consider. Dr. Hammonds, thank you for the opportunity to participate in your patient's care. We will follow with you. MAN Kathy FRANKLIN MD DR: MICHAEL/anthony JOB#: [id number] / [id number]
== END 2018-10-24 10:00 | disposition home health service (06) | DRG 194 ==
LOC: 1 SOUTH 08:30
PROVIDERS: ADMIT Family Medicine; ATTEND Family Medicine
DX: J18.9 Pneumonia, unspecified organism (principal); F33.9 Major depressive disorder, recurrent, unspecified; E44.0 Moderate protein-calorie malnutrition; K21.9 Gastro-esophageal reflux disease without esophagitis; E78.00 Pure hypercholesterolemia, unspecified; E66.9 Obesity, unspecified; E11.9 Type 2 diabetes mellitus without complications; R62.7 Adult failure to thrive; E87.6 Hypokalemia; F41.9 Anxiety disorder, unspecified; Z80.7 Family history of other malignant neoplasms of lymphoid, hematopoietic and related tissues; Z85.07 Personal history of malignant neoplasm of pancreas; Z85.118 Personal history of other malignant neoplasm of bronchus and lung; Z80.51 Family history of malignant neoplasm of kidney; Z87.891 Personal history of nicotine dependence; Z90.49 Acquired absence of other specified parts of digestive tract; Z98.84 Bariatric surgery status; Z68.29 Body mass index [BMI] 29.0-29.9, adult; Z88.8 Allergy status to other drugs, medicaments and biological substances
CPT/HCPCS: 36415; 71046; 74176; 80048; 80053; 82150; 82947; 83605; 83690; 85025; J0696; J1644; J1815; J3490; J7030

== ENCOUNTER → 2020-03-23 | Outpatient (CLI) | payer MEDICARE ==
[~2020-03-23] MED LIST changes: +BUPR150T11 PO; +INSU100I11 SQ; +INSU100V31 SQ; +IOHEXOL 240 MG/ML 50ML VIAL. ONE; +IOHEXOL 240 MG/ML 50ML VIAL. PO ONE; +IOHEXOL 300 MG/ML 75 ML VIAL. IV ONE; +METF-658 PO; -METF500T9 PO; +NORT10CA PO
--- NOTE | 2020-03-23 17:22 | RAD ---
EXAM: CT Pulmonary Angiogram INDICATION: Reason: PANCREATIC CA / Spl. Instructions: DRINKING 9:20-10:20 / History: TECHNIQUE: Multi-detector row images were acquired from the thoracic inlet through the upper abdomen with the use of IV contrast. Sagittal and coronal images were acquired from the transaxial data. MIP images of the pulmonary arteries were obtained. All CT scans performed at this facility utilize dose optimization techniques as appropriate to the exam, including the following: Automated exposure control and adjustment of the mA and/or KV according to patient size (this includes techniques or standardized protocols for targeted exams where dose is indication/reason for exam). IV CONTRAST: Administered COMPARISON: CT chest without IV contrast 02/10/2018 FINDINGS: PULMONARY ARTERIES: No pulmonary emboli are identified. CARDIOVASCULAR: Right jugular approach tunneled chest port terminating near the cavoatrial junction. Aorta is normal caliber. MEDIASTINUM & GERALD: No adenopathy or masses. LUNGS: Spiculated 8mm opacity at the right lung apex (image 22 of series 4) is unchanged. Patchy consolidation in the superior segment right lower lobe is also unchanged. Status post left lower lobectomy. PLEURAL SPACE: No pleural effusions or pneumothorax. OSSEOUS & SOFT TISSUE: No acute osseous abnormality. Partial resection of the posterior left seventh and eighth ribs ABDOMEN: Visualized upper abdomen shows postsurgical changes described in greater detail on same-day abdomen pelvis CT IMPRESSION: 1. No evidence of pulmonary emboli. 2. Airspace opacities of the right lung apex and in the superior segment right lower lobe apparent change from 2018 and are thus favored to represent scar tissue. In the setting of previous malignancy, attention on follow-up would be beneficial. No new findings in the lungs. EXAM: CT Abdomen and Pelvis with IV contrast INDICATION: Reason: PANCREATIC CA / Spl. Instructions: DRINKING 9:20-10:20 / History: TECHNIQUE: Multi-detector row CT images were acquired from the lung bases through the abdomen and pelvis with the use of IV contrast. Sagittal and coronal images were acquired from the transaxial data. All CT scans performed at this facility utilize dose optimization techniques as appropriate to the exam, including the following: Automated exposure control and adjustment of the mA and/or KV according to patient size (this includes techniques or standardized protocols for targeted exams where dose is indication/reason for exam). IV CONTRAST: Administered ORAL CONTRAST: administered COMPARISON: Abdomen pelvis CT without IV contrast of 10/23/2018 FINDINGS: LOWER CHEST: Laparoscopic gastric band is present. LIVER: Unremarkable BILIARY SYSTEM: Gallbladder surgically absent There is some pneumobilia but bile ducts are not dilated. PANCREAS: Redemonstrated are surgical changes from a previous Whipple procedure. There remains atrophy and scattered calcifications in the remaining pancreatic parenchyma as well as a decrease in inflammatory soft tissue stranding, gas and fluid in the surgical bed although this is not fully resolved. No ductal dilation. No organized peripancreatic fluid collection. SPLEEN: Spleen shows heterogeneous hypodensity with scattered punctate calcifications. The calcifications appear overall the same but the hypodensities in the spleen may be new. No splenomegaly. No evidence of a segmental infarct. ADRENALS: Unremarkable KIDNEYS & URETERS: Stable cortical cysts in both kidneys without need for additional imaging follow-up. No hydronephrosis or hydroureter. No definite urinary calculi noted. BLADDER: Unremarkable REPRODUCTIVE ORGANS: Unremarkable GASTROINTESTINAL: No findings of bowel obstruction or perforation. There is however a parajejunal fluid collection in the mesentery to the left of the proximal SMA measuring 2.8 cm in diameter and containing a small bubble of gas that appears to tent the jejunum wall, best illustrated on sagittal image 57 of series 9 and axial image 55 of series 7. The intraluminal contrast in the jejunum does not appear admixed with the low density fluid within this collection. MESENTERY/PERITONEUM/RETROPERITONEUM: There is exuberant soft tissue stranding in the mesentery surrounding the aforementioned fluid collection and branches of the SMV appear to abut this fluid collection at its right aspect. Overall mesenteric soft tissue stranding has decreased from the previous examination VASCULAR: There is soft tissue stranding along the anterior wall of the IVC, slightly improved from prior. Scattered arterial vascular calcifications. Mixed calcified and noncalcified plaque in the proximal SMA is incidentally noted LYMPH NODES: Multiple reactive mesenteric lymph nodes. No bulky adenopathy. No suppurative adenopathy. OSSEOUS & SOFT TISSUES: Osteopenia. No acute or aggressive appearing osseous lesions seen. IMPRESSION: Post Whipple surgical changes with improved findings of inflammation in the upper abdomen but with development of a fluid collection 2.8 cm in diameter between the proximal SMA and the jejunum. Reassessment on follow-up could be beneficial. There are no findings suspicious for active metastatic disease in the chest abdomen or pelvis appreciated. Electronically signed by: Constanza Mace MD (03/23/2020 5:19 PM) [id number]
== END | disposition home or self-care (01) ==
LOC: CT 09:06
PROVIDERS: ATTEND Internal Medicine Hematology & Oncology
DX: C25.0 Malignant neoplasm of head of pancreas (principal); K86.81 Exocrine pancreatic insufficiency; I10 Essential (primary) hypertension; M85.88 Other specified disorders of bone density and structure, other site; I70.208 Unspecified atherosclerosis of native arteries of extremities, other extremity; I88.0 Nonspecific mesenteric lymphadenitis
CPT/HCPCS: 71260; 74177; Q9966; Q9967

== ENCOUNTER → 2020-03-31 | Outpatient (CLI) | payer MEDICARE ==
[~2020-03-31] MED LIST changes: -IOHEXOL 240 MG/ML 50ML VIAL. ONE; -IOHEXOL 240 MG/ML 50ML VIAL. PO ONE; -IOHEXOL 300 MG/ML 75 ML VIAL. IV ONE; +IV NORMAL SALINE 1,000ML 1,000 ML IV SCH
[2020-03-31 16:07] LABS: BASO % 1 % (0-3); EOS # 0.1 x10^3/uL (0.0-0.7); EOS % 1 % (0-3); HEMATOCRIT 33.3 % (39.0-53.0); HEMOGLOBIN 10.9 g/dL (13.0-17.5); LYMPH # 1.4 x10^3/uL (1.0-4.8); LYMPH % 23 % (24-48); MEAN CORPUSCULAR HEMOGLOBIN 30 pg (25-35); MEAN CORPUSCULAR HGB CONC 33 g/dL (31-37); MEAN CORPUSCULAR VOLUME 92 fL (79-100); MONO # 0.9 x10^3/uL (0.0-1.1); MONO % 15 % (0-9); NEUT # 3.7 x10^3uL (1.8-7.7); NEUT % 61 % (31-73); PLATELET COUNT 169 x10^3/uL (140-400); RED CELL DISTRIBUTION WIDTH 16.4 % (11.5-14.5)
[2020-03-31 16:17] VITALS: BP 106/62
[2020-03-31 16:21] LABS: ALBUMIN 3.3 g/dL (3.4-5.0); ALBUMIN/GLOBULIN RATIO 0.7 (1.0-1.7); CALCIUM 9.4 mg/dL (8.5-10.1); CREATININE 0.9 mg/dL (0.7-1.3); GFR 82.7; POTASSIUM 4.2 mmol/L (3.5-5.1); TOTAL BILIRUBIN 0.4 mg/dL (0.2-1.0)
[2020-04-01 02:07] LABS: HEMOGLOBIN A1C 9.1 % (4.8-5.6)
== END | disposition home or self-care (01) ==
LOC: OPINF 15:21
PROVIDERS: ATTEND Family Medicine
DX: E86.0 Dehydration (principal); I10 Essential (primary) hypertension; E11.9 Type 2 diabetes mellitus without complications
CPT/HCPCS: 36415; 80053; 82150; 83036; 83690; 85025; 96360; J7030

== ENCOUNTER → 2020-04-02 | Outpatient (CLI) | payer MEDICARE ==
[2020-03-31 16:17] VITALS: BP 106/62
[~2020-04-02] MED LIST changes: -IV NORMAL SALINE 1,000ML 1,000 ML IV SCH
--- NOTE | 2020-04-02 13:46 | RAD ---
EXAM: CT Abdomen and Pelvis without IV contrast INDICATION: Reason: Abd pain, left side back to mid-section x 8 weeks / Spl. Instructions: please call report to [phone], Dr. lux / History: TECHNIQUE: Multi-detector row CT images were acquired from the lung bases through the abdomen and pelvis without the use of IV contrast. Sagittal and coronal images were acquired from the transaxial data. All CT scans performed at this facility utilize dose optimization techniques as appropriate to the exam, including the following: Automated exposure control and adjustment of the mA and/or KV according to patient size (this includes techniques or standardized protocols for targeted exams where dose is indication/reason for exam). ORAL CONTRAST: None COMPARISON: CT chest abdomen pelvis with IV contrast of 03/23/2020, which also included use of enteric contrast. FINDINGS: The absence of IV contrast limits evaluation of soft tissue pathology. LOWER CHEST: Distal thoracic esophagus is collapsed, mimicking wall thickening. LIVER: Unremarkable BILIARY SYSTEM: Gallbladder is surgically absent. Bile ducts are not dilated. PANCREAS: Unremarkable SPLEEN: Unremarkable ADRENALS: Unremarkable KIDNEYS & URETERS: Unremarkable BLADDER: Unremarkable REPRODUCTIVE ORGANS: Prostate measures 4.5 cm in diameter. GASTROINTESTINAL: The stomach again shows changes from gastric banding procedure. The small bowel again reveals a jejunal loop that abuts an inflammatory fluid collection in the upper abdominal mesentery. The colon shows stool-filled large bowel that could reflect constipation in the appropriate clinical context. Scattered colonic diverticuli without findings of acute diverticulitis are also noted.. The appendix is normal. MESENTERY/PERITONEUM/RETROPERITONEUM: Previously described fluid collection with thick leach between the SMA and jejunum remains present with no significant change in size measuring approximately 2.5 cm but showing similar to marginally worse. Lesional soft tissue stranding. VASCULAR: There is less definition in the tissue planes between the SMA and the inflammatory fluid collection aforementioned. No change in diameter of the SMA is appreciated measuring approximately 8 mm in diameter. Evaluation for patency is limited in the absence of IV contrast. Scattered atherosclerotic changes in the arterial vessels are noted. LYMPH NODES: No adenopathy OSSEOUS & SOFT TISSUES: Unremarkable IMPRESSION: 1. No significant change in a 2.5 cm inflammatory fluid collection between the SMA and jejunum. Cannot exclude an abscess. The collection is in proximity to the SMA and considered at risk of inciting a mycotic aneurysm though no definite vascular complication is demonstrated on the current examination, limited by lack of IV contrast. 2. Stool-filled colon. Correlate for constipation. 3. Gastric band with possible wall thickening in the distal thoracic esophagus. There are no overt findings of obstruction shown. Correlate for relevance to symptoms. Electronically signed by: Constanza Mace MD (04/02/2020 1:43 PM) [id number]
== END | disposition home or self-care (01) ==
LOC: CT 12:39
PROVIDERS: ATTEND Family Medicine
DX: K57.32 Diverticulitis of large intestine without perforation or abscess without bleeding (principal); K59.00 Constipation, unspecified; I70.8 Atherosclerosis of other arteries
CPT/HCPCS: 74176